=== PATIENT | female | born 1970 | race Caucasian/White ===

== ENCOUNTER → 2021-01-26 | Outpatient (CLI) | payer OTHER ==
[~2021-01-26] MED LIST: FLEXERIL5 MG PO; MOTRIN800 MG PO; ULTRAM50 MG PO; VALIUM2 MG PO; VALIUM5 MG PO
== END | disposition home or self-care (01) ==
LOC: COVID19 18:49
PROVIDERS: ATTEND Student in an Organized Health Care Education/Training Program
DX: U07.1 COVID-19 (principal)